=== PATIENT | male | born 1970 | race Caucasian/White ===

== ENCOUNTER → 2019-09-26 10:16 | Outpatient (CLI) | payer BC, SELFPAY ==
[2019-09-27 16:03] LABS: Covid-19 Nasal PCR Sendout Lex Not Detected
--- NOTE | 2019-09-28 18:45 | PC.NURSE ---
ATTEMPTED TO CALL WITH NEGATIVE RESULTS OF COVID 19 TEST. NO VOICEMAIL, MESSAGES STATES THE NUMBER DIALED IS NOT ACCEPTING CALLS AT THIS TIME
== END ==
PROVIDERS: PCP Family Medicine; Visit Provider Family Medicine
DX: Z03.818 Encounter for observation for suspected exposure to other biological agents ruled out (principal)
CPT/HCPCS: U0004

== ENCOUNTER 2020-09-21 18:27 | Emergency (ER) | payer BC, SELFPAY ==
[2020-09-21 18:40] VITALS: BP 146/98; PULSE 115; RESP 18; TEMP 36.7; O2SAT 98; BMI 26.6
--- NOTE | 2020-09-21 18:45 | XR_ITS ---
PROCEDURE INFORMATION: Exam: XR Facial Bones, Minimum of 3 Views, Complete Exam date and time: 09/21/2020 6:45 PM Age: 49 years old Clinical indication: Nose pain; Patient HX: Fall TECHNIQUE: Imaging protocol: XR of the facial bones, minimum of 3 views. Complete exam. COMPARISON: No relevant prior studies available. FINDINGS: Sinuses: Well aerated. No opacification. Nasal cavity/Septum: Radiopaque densities noted within the nasal cavity and overlying the lower lip. Bones/joints: Postoperative changes of the mandible present with plate and screws in place. No evidence of acute fracture as imaged. Soft tissues: Unremarkable. IMPRESSION: 1. No evidence of acute fracture as imaged. Recommend CT scan of the facial bones if symptoms persist. 2. Radiopaque densities noted within the nasal cavity and overlying the lower lip.
--- NOTE | 2020-09-21 18:45 | XR_ITS ---
PROCEDURE INFORMATION: Exam: XR Right Elbow Exam date and time: 09/21/2020 6:45 PM Age: 49 years old Clinical indication: Pain; Elbow; Right; Patient HX: Fall; Additional info: Fall--. Patient unable to straighten arm completely due to pain TECHNIQUE: Imaging protocol: XR Right elbow. Views: 3 or more views. COMPARISON: No relevant prior studies available. FINDINGS: Bones/joints: There is no evidence of acute fracture. There is no evidence of joint malalignment or dislocation. Degenerative changes of the elbow joint. Soft tissues: There are no soft tissue masses or fluid collections. Soft tissue swelling is present. IMPRESSION: 1. No evidence of acute fracture. 2. No evidence of acute dislocation. 3. Degenerative changes of the elbow joint. 4. Soft tissue swelling is present.
--- NOTE | 2020-09-21 19:37 | HMH.EDUTC ---
[facility] [place] Clinical Impression: Right elbow pain Fall Qualifiers: Encounter type: initial encounter Qualified Code(s): W19.XXXA - Unspecified fall, initial encounter Nasal trauma Qualifiers: Encounter type: initial encounter Qualified Code(s): S09.92XA - Unspecified injury of nose, initial encounter Disposition: Home, Self-Care Condition on Discharge: Good Instructions: DI for Elbow Pain Additional Instructions: Rest the extremity, apply ice for 15 minutes as tolerated three or four times per day, Wear the dani wrap for compression, Elevate the extremity as tolerated while you are resting. Take ibuprofen for pain. I sent in a prescription to your pharmacy. Follow up with Dr. Tellez (orthopedics). Sometimes there can be fractures that don't show up well on the first set of x-rays. So, you should follow up if you continue to have symptoms. I put in a referral but you need to call his office and schedule an appointment. Follow up with your regular doctor. GO TO THE ER FOR ANY WORSENING SYMPTOMS Prescriptions: Ibuprofen [Ibuprofen 800mg Tablet] 800 mg PO Q8HP PRN #30 tab PRN Reason: Moderate Pain Transmission Status: Received by [facility] #[id number] Referrals: Keo Palma MD [Primary Care Provider] - Dilcia Tellez MD [Physician] - Time of Disposition: 19:50 Medical Decision Making - Medical Records Medical records reviewed: No: I reviewed the patient's medical records. - Omar Inquiry Pt receiving controlled substance: No Vital Signs: 09/21/20 18:40 09/21/20 19:47 Temperature 98.1 F 98 F Temperature Source Oral Pulse Rate 107 H Pulse Rate [Right] 115 H Respiratory Rate 18 16 Blood Pressure 139/92 H Blood Pressure [Right Arm] 146/98 H Blood Pressure Mean [Right Arm] 114 Blood Pressure Source [Right Arm] Automatic Cuff Blood Pressure Position [Right Arm] Sitting 02 Sat by Pulse Oximetry 98 Oxygen Delivery Method Room Air - Radiology Data #1 Image(s): Elbow Image Reviewed: Yes I reviewed the patient's radiology image, Yes I have reviewed radiologist's interpretation Preliminary Findings: Abnormal, No Fracture Seen PROCEDURE INFORMATION: Exam: XR Right Elbow Exam date and time: 09/21/2020 6:45 PM Age: 49 years old Clinical indication: Pain; Elbow; Right; Patient HX: Fall; Additional info: Fall--. Patient unable to straighten arm completely due to pain TECHNIQUE: Imaging protocol: XR Right elbow. Views: 3 or more views. COMPARISON: No relevant prior studies available. FINDINGS: Bones/joints: There is no evidence of acute fracture. There is no evidence of joint malalignment or dislocation. Degenerative changes of the elbow joint. Soft tissues: There are no soft tissue masses or fluid collections. Soft tissue swelling is present. IMPRESSION: 1. No evidence of acute fracture. 2. No evidence of acute dislocation. 3. Degenerative changes of the elbow joint. 4. Soft tissue swelling is present. #2 Image(s): Other (facial bones) Image Reviewed: Yes I reviewed the patient's radiology image, Yes I have reviewed radiologist's interpretation Preliminary Findings: Normal/NAD, No Fracture Seen PROCEDURE INFORMATION: Exam: XR Facial Bones, Minimum of 3 Views, Complete Exam date and time: 09/21/2020 6:45 PM Age: 49 years old Clinical indication: Nose pain; Patient HX: Fall TECHNIQUE: Imaging protocol: XR of the facial bones, minimum of 3 views. Complete exam. COMPARISON: No relevant prior studies available. FINDINGS: Sinuses: Well aerated. No opacification. Nasal cavity/Septum: Radiopaque densities noted within the nasal cavity and overlying the lower lip. Bones/joints: Postoperative changes of the mandible present with plate and screws in place. No evidence of acute fracture as imaged. Soft tissues: Unremarkable. RANJIT
[2020-09-21 19:47] VITALS: BP 139/92; PULSE 107; RESP 16; TEMP 36.6
== END 2020-09-21 19:51 | disposition home or self-care (01) ==
PROVIDERS: Emergency Provider Nurse Practitioner Family; PCP Family Medicine
DX: S09.92XA Unspecified injury of nose, initial encounter (principal); W01.0XXA Fall on same level from slipping, tripping and stumbling without subsequent striking against object, initial encounter; Y92.009 Unspecified place in unspecified non-institutional (private) residence as the place of occurrence of the external cause; F17.210 Nicotine dependence, cigarettes, uncomplicated
CPT/HCPCS: 70150; 73080; 99202; G0463

== ENCOUNTER → 2020-09-30 13:09 | Outpatient (CLI) | payer BC, SELFPAY ==
--- NOTE | 2020-09-30 13:14 | XR_ITS ---
PROCEDURE: XR LUMBAR SPINE MIN 4V CLINICAL INDICATION: LT LEG PAIN,DDD COMPARISON: No exams were available for comparison FINDINGS: There is normal alignment. No fracture or dislocation. There is degenerative disc disease at L5-S1 with anterior bridging osteophyte. Anterior bridging osteophyte also noted at L2-L3. Small posterior osteophytes also noted at L5-S1. There is mild facet sclerotic change at L5-S1. Other findings:None. IMPRESSION: Degenerative disc disease at L5-S1 with endplate osteophytes and mild facet arthritic changes also at that level. Dictated by: Benson Gerber MD 09/30/2020 13:43 Benson Gerber MD in [place] 09/30/2020 13:43
== END ==
PROVIDERS: PCP Family Medicine; Visit Provider Family Medicine
DX: M51.36 Other intervertebral disc degeneration, lumbar region (principal); M79.605 Pain in left leg
CPT/HCPCS: 72110

== ENCOUNTER → 2020-10-13 14:12 | Outpatient (CLI) | payer BC, SELFPAY ==
--- NOTE | 2020-10-13 14:15 | XR_ITS ---
PROCEDURE: XR ELBOW RT MIN 3V CLINICAL INDICATION: right elbow pain COMPARISON: CR XR ELBOW RT MIN 3V from 09/21/2020 FINDINGS: Osteoarthritic changes are present involving the elbow joint. Distal humerus anteriorly and laterally and along the radial head anteriorly. No acute fracture or dislocation. No lytic or blastic change. Bony spurring is present at the medial aspect of the elbow. The calcification along the radial head may actually be due to hypertrophic change of the coracoid process. IMPRESSION: Overall no significant change in the osteoarthritic changes of the elbow compared to 09/22/2019 Dictated by: Benson Gerber MD 10/13/2020 14:36 Benson Gerber MD in [place] 10/13/2020 14:36
== END ==
PROVIDERS: PCP Family Medicine; Visit Provider Orthopaedic Surgery
DX: M25.521 Pain in right elbow (principal)
CPT/HCPCS: 73080

== ENCOUNTER 2020-12-26 10:49 | Emergency (ER) | payer BC, SELFPAY ==
[2020-12-26 11:00] VITALS: BP 146/96; PULSE 109; RESP 19; O2SAT 98; BMI 26.8
--- NOTE | 2020-12-26 11:27 | HMH.EDUTC ---
[facility] [place] Clinical Impression: COVID-19 virus test result unknown Nausea & vomiting Qualifiers: Vomiting type: unspecified Vomiting Intractability: non-intractable Qualified Code(s): R11.2 - Nausea with vomiting, unspecified Disposition: Home, Self-Care Condition on Discharge: Good Instructions: DI for COVID-19 (Suspected or Confirmed ), COVID-19: Protecting Yourself When You're at High Risk, Preventing the Spread of Coronavirus Discharge Instructions, DI for Nausea -- Adult, Nausea and Vomiting-Adult Additional Instructions: Monitor temperature. Seek treatment if fever develops. Follow-up immediately if new or worse symptoms worsen or no noticeable improvement over 48 hours. Increase fluids such as water, Gatorade, Powerade, juice or Pedialyte with limited formula/dietary in children No food is okay as long as you are drinking. Once ready to eat start bland such as bananas, rice, applesauce, toast. Contagious until no diarrhea, vomiting, fever times 48 hours without medication Avoid antidiarrheals unless told otherwise. Best to let the virus run its course. Follow-up immediately for new or worsening symptoms or no noticeable improvement over the next 48 hours. Prescriptions: ondansetron HCL [Zofran 4mg Tab*] 4 mg PO TIDP PRN 5 Days #12 tab PRN Reason: Nausea Transmission Status: Pending to [facility] #[id number] Referrals: Keo Palma MD [Primary Care Provider] - Time of Disposition: 11:31 Medical Decision Making - Omar Inquiry Pt receiving controlled substance: No Orders (Tests/Meds): ORDERS Category Date Time Status Covid-19 Nasal PCR ([facility]) Routine Lab 12/26/20 11:08 Received [facility] [place] HPI - General Chief complaint: Urgent [facility] Stated complaint: vomiting, fever Time Seen by Provider: 12/26/20 11:27 Mode of Arrival: Ambulatory Source of Information: Patient Limitations: No Limitations - History of Present Illness Provider Complaint: 50 yr old male presents for nausea and vomiting that started this am. pt states his work states he has to get a covid swab before returning to work - Related Data Home Medications Medication Instructions Recorded Confirmed lisinopril 10 1 tab PO DAILY 10/13/20 10/13/20 mg-hydrochlorothiazide 12.5 mg tablet Previous Rx's Medication Instructions Recorded Ibuprofen [Ibuprofen 800mg 800 mg PO Q8HP PRN #30 tab 09/21/20 Tablet] ondansetron HCL [Zofran 4mg Tab*] 4 mg PO TIDP PRN 5 Days #12 tab 12/26/20 Allergies Allergy/AdvReac Type Severity Reaction Status Date / Time acetaminophen [From PERCOCET] Allergy Unknown Rash Verified 10/13/20 13:40 oxycodone [From PERCOCET] Allergy Unknown Verified 10/13/20 13:40 [facility] History - Hepatitis A Screen Attestation statement:: This patient has been screened for Hepatitis A risk factors. I have reviewed the patient's past medical history: Yes Medical History: Reports:: Hypertension - Social History Smoking Status: Current every day smoker # Packs/Day (cigarettes): 1 Alcohol Intake: current Alcohol Intake Frequency:: a few times a month Occupational Status: employed Family Hx:: No significant family history ROS Obtained: Yes Systems reviewed as appropriate & no additional complaints - Constitutional Constitutional: Reports system reviewed and no additional complaints, except as docu, Denies fatigue, Denies fever(s) - Eyes Eyes: Reports system reviewed and no additional complaints, except as docu, Denies loss of vision - ENT Ears, Nose, Mouth, and Throat: Reports system reviewed and no additional complaints, except as docu, Denies sore throat - Cardiovascular Cardiovascular: Reports system reviewed and no additional complaints, except as docu, Denies chest pain - Respiratory Respiratory: Reports system reviewed and no additional complaints, except as docu, Denies change in phlegm color - Gastrointestinal Gastrointestingal: Reports: system reviewed and no a
[2020-12-26 11:30] VITALS: BP 146/96; PULSE 109; RESP 19; TEMP 36.8; O2SAT 98
== END 2020-12-26 11:36 | disposition home or self-care (01) ==
PROVIDERS: Emergency Provider Nurse Practitioner Family; PCP Family Medicine
DX: R11.2 Nausea with vomiting, unspecified (principal); Z20.822 Contact with and (suspected) exposure to COVID-19
CPT/HCPCS: 99202; G0463; U0003

== ENCOUNTER → 2021-01-19 17:23 | Outpatient (CLI) | payer BC, SELFPAY | PROVIDERS: PCP Family Medicine; Visit Provider Nurse Practitioner | DX: Z20.822 Contact with and (suspected) exposure to COVID-19 (principal) | CPT/HCPCS: C9803; U0003; U0005 ==

== ENCOUNTER → 2021-01-21 13:23 | Outpatient (CLI) | payer BC, SELFPAY | PROVIDERS: PCP Family Medicine; Visit Provider Nurse Practitioner | DX: Z20.822 Contact with and (suspected) exposure to COVID-19 (principal) | CPT/HCPCS: C9803; U0003; U0005 ==

== ENCOUNTER → 2021-02-08 09:42 | Outpatient (CLI) | payer BC, SELFPAY | PROVIDERS: PCP Family Medicine; Visit Provider Nurse Practitioner | DX: Z20.822 Contact with and (suspected) exposure to COVID-19 (principal) | CPT/HCPCS: C9803; U0003; U0005 ==

== ENCOUNTER → 2021-03-15 10:15 | Outpatient (CLI) | payer BC, SELFPAY ==
[2021-03-15 10:48] LABS: Basophils # 0.2 K/mm3 (0-0.2); Basophils % 1.7 % (0.1-2.0); Eosinophils # 0.5 K/mm3 (0.0-0.4); Eosinophils % 4.7 % (0.1-12.0); Hematocrit 43.9 % (42.0-52.0); Hemoglobin 14.1 g/dL (14.1-18.0); Lymphocytes % 27.3 % (10-50); Mean Corpuscular HGB Conc 32.2 g/dL (31.8-35.4); Mean Corpuscular Volume 108.7 fl (80-94); Mean Platelet Volume 8.6 fl (7.4-10.4); Monocytes # 0.6 K/mm3 (0.1-1.0); Monocytes % 5.6 % (1.7-9.3); Neutrophils # 6.7 K/mm3 (1.8-7.8); Neutrophils % 60.7 % (37.0-80.0); Platelet Count 664 K/mm3 (142-424); Red Blood Count 4.04 M/mm3 (4.60-6.20)
[2021-03-15 11:15] LABS: Microalbumin < 6.000 mg/L (0-16.7)
[2021-03-15 11:34] LABS: Alanine Aminotransferase 30 U/L (12-78); Albumin Level 4.2 g/dl (3.5-5.0); Albumin/Globulin Ratio 1.8 (1.1-1.8); Alkaline Phosphatase 70 U/L (38-126); Anion Gap 11.5 mEq/L (5-15); Aspartate Amino Transferase 27 U/L (17-59); Bilirubin,Total 0.2 mg/dl (0.2-1.3); Blood Urea Nitrogen 12 mg/dl (9-20); Calcium 9.3 mg/dl (8.4-10.2); Carbon Dioxide 29 mmol/L (22.0-30.0); Chloride 104 mmol/L (98-107); Chol/HDL Ratio 4.4 (1-3.5); Cholesterol 174 mg/dl (140-200); Estimated Glomerular Filt Rate 90 ml/min (>60); GFR (African American) 109 ML/MIN (>60); Globulin 2.4 g/dL (1.3-3.2); Glucose 92 mg/dl (74-100); HDL Cholesterol 40 mg/dl (40-60); Potassium 4.5 mmoL/L (3.5-5.1); Sodium 140 mmol/L (136-145); Total Protein,Serum 6.6 g/dl (6.3-8.2); Triglycerides 204 mg/dl (30-150); Uric Acid 5.9 mg/dl (3.5-8.5); VLDL Cholesterol 41 mg/dL (0-40)
[2021-03-15 11:45] LABS: Direct LDL Cholesterol 92.77 mg/dL (100-129)
[2021-03-15 12:05] LABS: Thyroid Stimulating Hormone 0.78 uIU/mL (0.465-4.68)
== END ==
PROVIDERS: Family Medicine; Visit Provider Internal Medicine Adolescent Medicine
DX: I10 Essential (primary) hypertension (principal); E78.2 Mixed hyperlipidemia
CPT/HCPCS: 36415; 80053; 80061; 82043; 84443; 84550; 85025

== ENCOUNTER 2025-04-21 06:50 | Outpatient (CLI) | payer BC, SELFPAY ==
--- OUTSIDE RECORDS SUMMARY | 2024-07-01 04:45 | XMS_ITS ---
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 Role Phone Keo Palma Primary Care Provider Allergies Allergen (clinical drug ingredient) Drug/Non Drug Allergy documented on EMR Reaction Allergy Type Onset Date Status acetaminophen / oxycodone Percocet Unknown Drug Allergy Active Results Component Value Reference Range Notes CBC Venipuncture (in house) Reviewed date:07/02/2024 03:01:47 PM Interpretation: Normal Performing Lab: Notes/Report: Normal wbc 6.5 3.5 - 10 lymph 31.8% 15 - 50 mid 8.3% 2 - 15 gran 59.9% 35 - 80 rbc 4.48 3.5 - 5.5 hgb 16.0 11.5 - 16.5 hct 45.9 35 - 55 mcv 102.4 75 - 100 mch 35.6 25 - 35 mchc 34.8 31 - 38 platlet 357 100 - 400 P-Vitamin B12 Reviewed date:07/02/2024 03:01:46 PM Interpretation: Normal Performing Lab: Notes/Report: Test performed by [facility] , [address], [place] [address] Dinesh Sequeira MD, Motor Vehicle Field Representative CLIA: [id number] Vitamin B12 [phone] pg/mL P-Comprehensive Metabolic Pa erin (CMP) Reviewed date:07/02/2024 03:01:46 PM Interpretation:gluc 101, alt 76, ast 77 Performing Lab: Notes/Report: Test performed by [facility] [address] [place] [address] , [address], [place] [address] Dinesh Sequeira MD, Motor Vehicle Field Representative CLIA: [id number] Sodium 139 135-145 mmol/L Potassium 4.4 3.5-5.3 mmol/L Chloride 97 97-108 mmol/L CO2 28 22-32 mmol/L Glucose 101 65-99 mg/dL BUN 9 6-20 mg/dL Creatinine 0.98 0.70-1.30 mg/dL Calcium 9.7 8.6-10.4 mg/dL eGFR by Creatinine 93 >59 mL/min/1.73m2 Protein 7.5 6.0-8.3 g/dL Albumin 4.6 3.5-5.3 g/dL Alkaline Phosphatase 110 40-129 IU/L ALT (SGPT) 76 <5-55 IU/L AST (SGOT) 77 <5-46 IU/L Bilirubin, Total 0.4 <0.2-1.2 mg/dL A/G Ratio 1.6 1.1-2.5 P-Lipid Panel Reviewed date:07/02/2024 03:01:47 PM Interpretation:chol 260, trigs 169, non-hdl 199, ldl 165 Performing Lab: Notes/Report: Test performed by [facility] [address] [place] [address] , [address], [place] [address] Dinesh Sequeira MD, Motor Vehicle Field Representative CLIA: [id number] Cholesterol 260 <200 mg/dL Triglycerides 169 <150 mg/dL HDL Cholesterol 61 >39 mg/dL Cholesterol / HDL Ratio 4.26 0.00-4.99 Ratio Non-HDL Cholesterol 199 <130 mg/dL LDL Cholesterol (Calculation) 165 <130 mg/dL LDL Cholesterol Levels* Less than 100 mg/dL Optimal 100 to 129 mg/dL Near Optimal/ Above Optimal 130 to 159 mg/dL Borderline High 160 to 189 mg/dL High 190 mg/dL and above Very High * Categories as recommended by the 2004 ATPIII guidelines LDL/HDL Ratio 2.7 <3.3 Ratio LDL Cholesterol Patient History Test Date: 07/01/2024 LDL Results: 165 Units: mg/dL % Change: - P-TSH reflex to FT4 Reviewed date:07/02/2024 03:01:47 PM Interpretation: Normal Performing Lab: Notes/Report: Test performed by [facility] [address] [place] [address] , [place] [address] Dinesh Sequeira MD, Motor Vehicle Field Representative CLIA: [id number] TSH reflex to FT4 0.61 0.43-5.25 mU/L P-Microalbumin/Creatinine, R andom Urine Sample Reviewed date:07/02/2024 03:01:47 PM Interpretation:a/c 43 Performing Lab: Notes/Report: Test performed by [facility] [address] [place] [address] , [place] [address] Dinesh Sequeira MD, Motor Vehicle Field Representative CLIA: [id number] Albumin/Creatinine Ratio, Urine 43 0-30 ug/m g Microalbumin, Urine, Random 9.3 Creatinine, Urine 216.7 REASON FOR VISIT ckup,refills Medications Medication SIG (Take, Route, Frequency, Duration) Notes Start Date End Date Status Atorvastatin Calcium 10 MG 1 tab(s) oral ly once a day; Duration: 90 days Active QUEtiapine Fumarate 50 MG 1 tab(s) orall y once a day (in the evening); Duration: 90 days Active Lisinopril-hydroCHLOROthiazi de 20-12.5 MG 1 tab(s) orally once a day; Duration: 90 days Active Triamcinolone Acetonide 0.1 % 1 phil applied topically 3 times a day 02/28/2022 Active Omeprazole 20 MG 1 cap(s) orally once a day; Duration: 90 days Active Vital Signs Weight 192.2 lbs 07/01/2024 Blood pressure systolic 150 mm Hg 07/01/19 Blood pressure diastolic 94 mm Hg 025 Heart Rate 113 /min 07/01/2024 Height 71 in 07/01/2024 BMI 26.80 kg/m2 07/01/2024 Encounters Encounter Location Date Provider Diagnosis [facility] [address] [place] [id number] 07/01/2024 Keo Palma Essential hypertensi on I10 ; Mixed hyperlipidemia E78.2 ; Gastroesophageal reflux disease, unspecified whether esophagitis present K21.9 ; Numbness in both legs R20.0 and Primary insomnia F51.01 Assessments Encounter Date Diagnosis (ICD Code) Assessment Notes Treatment Notes Treatment Clinical Notes Section Notes 07/01/2024 Essential hypertension (ICD-10 - I10) 07/01/2024 Mixed hyperlipidemia (ICD-10 - E78.2) 07/01/2024 Gastroesophageal reflux disease, unspecified whether esophagitis present (ICD-10 - K21.9) 07/01/2024 Numbness in both legs (ICD-10 - R20.0) 07/01/2024 Primary insomnia (ICD-10 - F51.01) Plan Of Treatment Medication Medication Name Sig Start Date Stop Date Notes Atorvastatin Calcium 10 MG 1 tab(s) oral ly once a day; Duration: 90 days QUEtiapine Fumarate 50 MG 1 tab(s) orall y once a day (in the evening); Duration: 90 days Lisinopril-hydroCHLOROthiazi de 20-12.5 MG 1 tab(s) orally once a day; Duration: 90 days Omeprazole 20 MG 1 cap(s) orally once a day; Duration: 90 days Next Appt Details Follow Up: 4 Weeks, Reason: Provider Name:Keo poon, 07/15/2025 09:30:00 AM, [address], [address], [place], [phone], Progress Notes * Mt NESBITT:09/22 (54 yo M)Acc No.[id number]:07/01/2024 Progress Notes Patient: Arvin COOPER Provider: Salma Palma M.D. :1970 A ge:53 Y S ex:Male Date:07/01/2024 Address:[address] [place] [address] [address], [place], [phone] Subjective: * Chief Complaints: * 1 . Ckup,refills. * HPI: C ardiology: 53 year old male presents with c/o Blood Pressure Elevated P t here for 6 mo f/u on hypertension, states he is doing well and does not have any concerns. c/o Hyperlipidemia P t is fasting today. * ROS: D ERMATOLOGY: no R casper. n o H roland. G ASTROENTEROLOGY: no N ausea. n o V omiting. U ROLOGY: no D ifficulty urinating. n o B lood in urine. * Medical History: A llergic Rhinitis, Hypertension, Hyperlipidemia, Transaminasemia, Cervical Disc Disease, with C5/6 Spinal Stenosis, Alcoholism, Rehab 05/2013. * Surgical History: T ooth Extractions 1997, LT 5th Digit Tendon Decompression 2010, Cardiac Stress Test - Negative - [facility] 03/12/2020. * Hospitalization/Major Diagno stic Procedure: N ausea and Hypotension- [facility] 10/31/2009, Vomiting & Diarrhea- [facility] 06/15-03/2013, Siezure- [facility] 06/22-, Chest and Neck Pain- [facility] 03/10/2020, [place] [facility] [place] * Family History: F ather: alive. M other: alive, cervical cancer. 2 son(s) - healthy. . * Social History: C URRENT TOBACCO USE S moking Status: Patient does smoke, packs per day: 1. C affeine: yes, frequency:daily. Exercise: no. Marital Status: Single. Occupation: [employer]. Past smoking status: yes, PPD: 1 and 1/2 , years: 20+. Recreational drug use: no. Alcohol: Yes, Type: vodka and beer, Frequency: daily, heavy use. Sexually active: yes. * Medications: T aking Triamcinolone Acetonide 0.1 % Cream 1 phil applied topically 3 times a day , Taking Omeprazole 20 MG Capsule Delayed Release 1 cap(s) orally once a day , Taking QUEtiapine Fumarate 50 MG Tablet 1 tab(s) orally once a day (in the evening) , Taking Atorvastatin Calcium 10 MG Tablet 1 tab(s) orally once a day , Taking Lisinopril-hydroCHLOROthiazide 20-12.5 MG Tablet 1 tab(s) orally once a day , Medication List reviewed and reconciled with the patient * Allergies: P ercocet. Objective: * Vitals: W t:192.2, Temp:97.8, BP:150/94, HR:113, Nurse:erika, Ht: 71, BMI:26.80. * Examination: C ardiology: General Appearance: p leasant, NAD. H eart sounds: R RR, normal S1, S2. L ungs: c lear, no rales or wheezes. E xtremities: n o leg edema. Assessment: * Assessment: 1. E ssential hypertension - I10 (Primary) 2 . M ixed hyperlipidemia - E78.2 3 . G astroesophageal reflux disease, unspecified whether esophagitis present - K21.9 4 . N umbness in both legs - R20.0 5 . P rimary insomnia - F51.01 Plan: * Treatment: Value Reference Range A /G Ratio 1.6 1.1-2.5 - * A lbumin 4.6 3.5-5.3 - g/dL * A lkaline Phosphatase 110 40-129 - IU/L * A LT (SGPT) 76 H <5-55 - IU/L * A ST (SGOT) 77 H <5-46 - IU/L * B ilirubin, Total 0.4 <0.2-1.2 - mg/dL * B UN 9 6-20 - mg/dL * C alcium 9.7 8.6-10.4 - mg/dL * C hloride 97 97-108 - mmol/L * C O2 28 22-32 - mmol/L * C reatinine 0.98 0.70-1.30 - mg/dL * G lucose 101 H 65-99 - mg/dL * P otassium 4.4 3.5-5.3 - mmol/L * S odium 139 135-145 - mmol/L * P rotein 7.5 6.0-8.3 - g/dL * e GFR by Creatinine 93 >59 - mL/min/1.73m2 * Perri Zamudio 07/02/2024 3:01: 36 PM >See phone encounter ?LAB: P-Microalbumin/Creatinine, Random Urine Sample (Collection Date & Time - 07/01/2024 09:54 AM)?a/c 43* Value Reference Range A lbumin/Creatinine Ratio, Urine 43 H 0-30 - ug /mg * C reatinine, Urine 216.7 - mg/dL * M icroalbumin, Urine, Random 9.3 - mg/dL * LizzPerri 07/02/2024 3:01: 36 PM >See phone encounter 2.?Mixed hyperlipidemia? Refill Atorvastatin Calcium Tablet, 10 MG, 1 tab(s), orally, once a day, 90 days, 90, Refills 1. ?LAB: P-Comprehensive Metabolic Panel (CMP) (Collection Date & Time - 07/01/2024 09:54 AM)?gluc 101, alt 76, ast 77* Value Reference Range A /G Ratio 1.6 1.1-2.5 - * A lbumin 4.6 3.5-5.3 - g/dL * A lkaline Phosphatase 110 40-129 - IU/L * A LT (SGPT) 76 H <5-55 - IU/L * A ST (SGOT) 77 H <5-46 - IU/L * B ilirubin, Total 0.4 <0.2-1.2 - mg/dL * B UN 9 6-20 - mg/dL * C alcium 9.7 8.6-10.4 - mg/dL * C hloride 97 97-108 - mmol/L * C O2 28 22-32 - mmol/L * C reatinine 0.98 0.70-1.30 - mg/dL * G lucose 101 H 65-99 - mg/dL * P otassium 4.4 3.5-5.3 - mmol/L * S odium 139 135-145 - mmol/L * P rotein 7.5 6.0-8.3 - g/dL * e GFR by Creatinine 93 >59 - mL/min/1.73m2 * Perri Zamudio 07/02/2024 3:01: 36 PM >See phone encounter ?LAB: P-Lipid Panel (Collection Date & Time - 07/01/2024 09:54 AM)?chol 260, trigs 169, non-hdl 199, ldl 165* Value Reference Range C holesterol / HDL Ratio 4.26 0.00-4.99 - Ratio * C holesterol 260 H <200 - mg/dL * H DL Cholesterol 61 >39 - mg/dL * L DL Cholesterol (Calculation) 165 H <130 - mg/d L * L DL/HDL Ratio 2.7 <3.3 - Ratio * N on-HDL Cholesterol 199 H <130 - mg/dL * T riglycerides 169 H <150 - mg/dL * Perri Zamudio 07/02/2024 3:01: 36 PM >See phone encounter ?LAB: P-TSH reflex to FT4 (Collection Date & Time - 07/01/2024 09:54 AM)? Normal* Value Reference Range T SH reflex to FT4 0.61 0.43-5.25 - mU/L * LizzPerri 07/02/2024 3:01: 36 PM >See phone encounter 3.?Gastroesophageal reflux disease, unspecified whether esophagitis present? Refill Omeprazole Capsule Delayed Release, 20 MG, 1 cap(s), orally, once a day, 90 days, 90, Refills 1.??4.?Numbness in both legs?LAB: P-Vitamin B12 (Collection Date & Time - 07/01/2024 09:54 AM)?Normal* Value Reference Range V itamin B12 [phone] - pg/mL * LizzPerri langley 07/02/2024 3:01: 36 PM >See phone encounter ?LAB: CBC Venipuncture (in house) (Collection Date & Time - 07/01/2024)? Normal* Value Reference Range w bc 6.5 3.5 - 10 * l ymph 31.8% 15 - 50 * m id 8.3% 2 - 15 * g ran 59.9% 35 - 80 * r bc 4.48 3.5 - 5.5 * h gb 16.0 11.5 - 16.5 * h ct 45.9 35 - 55 * m cv 102.4 75 - 100 * m ch 35.6 25 - 35 * m chc 34.8 31 - 38 * p latlet 357 100 - 400 * Mariza Allison 07/01/2024 11:29:0 6 AM > Perri Zamudio 07/02/2024 3:01:36 PM >See phone encounter 5.?Primary insomnia? Refill QUEtiapine Fumarate Tablet, 50 MG, 1 tab(s), orally, once a day (in the evening), 90 days, 90, Refills 1.?? * Procedure Codes: 8 5025 CBC WITH AUTO DIFF, 3077F SYST BP = 140 MM HG6 IT, 3080F DIAST BP = 90 MM HG * Follow Up: 4 Weeks * Images: Billing Information: * Visit Code: 21690 Office Visit, Est Pt., Level 4. * Procedure Codes: 43595 CBC WITH AUTO DIFF. 3077F SYST BP = 140 MM HG6 IT. 3080F DIAST BP = 90 MM HG. * Electronic signature of Sarah Palma MD on 04/21/2025 at 06:53 AM EST Sign off status: Pending * Provider: Salma Palma M.D. Date: 0 07/01/2024 Generated for Andreina sofia/Syeda/eTransmitting on: 06/22/2024 06:53 AM EST History and Physical Notes * HPI (History of Present Illness) Category Sub-Category Detail Notes Category Not es Cardiology Blood Pressure Elevated Pt here for 6 mo f/u on hypertension, states he is doing well and does not have any concerns Hyperlipidemia Pt is fasting today Examination Category Sub-Category Detail Notes Category Not es Cardiology Lungs: clear, no rales or wheezes Heart sounds: RRR, normal S1, S2 Extremities: no leg edema General Appearance: pleasant, NAD
--- OUTSIDE RECORDS SUMMARY | 2024-08-05 05:15 | XMS_ITS ---
Author Organization [facility] Address [address] [place] [id number] Care Team Providers Care Astro Technician Name Role Phone Keo Palma Primary Care Provider Allergies Allergen (clinical drug ingredient) Drug/Non Drug Allergy documented on EMR Reaction Allergy Type Onset Date Status acetaminophen / oxycodone Percocet Unknown Drug Allergy Active REASON FOR VISIT 4 week checkup Encounters Encounter Location Date Provider Diagnosis [facility] [address] [place] [phone] 08/05/2024 Keo Palma Plan Of Treatment Next Appt Details Provider Name:Keo Glover ry, 07/15/2025 09:30:00 AM, [address], [address], [place], [phone], Progress Notes * Arvin NESBITTDOB:[birth year] (54 yo M)Acc No.[id number]:08/05/2024 Progress Notes Patient: Cata Arvin NUÑEZ Provider: Salma Palma M.D. :1970 A ge:53 Y S ex:Male Date:08/05/2024 Address:[address], [id number] Subjective: * Chief Complaints: * 1 . 4 week checkup. * ROS: D ERMATOLOGY: no R casper. [...] 2010, Cardiac Stress Test - Negative - [facility] 03/12/2020. * Hospitalization/Major Diagno stic Procedure: N ausea and Hypotension- [facility] ER 10/31/2009, Vomiting & Diarrhea- [facility] 06/15-03/2013, Siezure- [facility] 06/22-, Chest and Neck Pain- [facility] 03/10/2020, Elbow- [facility] 09/2020. * Family History: F ather: alive. M other: alive, cervical cancer. 2 son(s) - healthy. . * Social History: C URRENT TOBACCO USE S moking Status: Patient does smoke, packs per day: 1. C affeine: yes, frequency:daily. Exercise: no. Marital Status: Single. Occupation: [employer]. Past smoking status: yes, PPD: 1 and 1/2 , years: 20+. Recreational drug use: no. Alcohol: Yes, Type: vodka and beer, Frequency: daily, heavy use. Sexually active: yes. * Allergies: P ercocet. Objective: * Vitals: Assessment: Plan: * Treatment: * Images: Billing Information: * Visit Code: * Procedure Codes: * Electronic signature of Sarah Palma MD on 04/21/2025 at 06:53 AM EST Sign off status: Pending * Provider: Salma Palma M.D. Date: 0 08/05/2024 Generated for Andreina sofia/Syeda/Bradford on: 06/22/2024 06:53 AM EST
--- OUTSIDE RECORDS SUMMARY | 2025-04-13 06:15 | XMS_ITS ---
Author Organization [facility] Address [address] [facility] [address] [place] [id number] Care Team Providers Care Harnessmaker Name Role Phone Keo Palma Primary Care Provider Allergies Allergen (clinical drug ingredient) Drug/Non Drug Allergy documented on EMR Reaction Allergy Type Onset Date Status acetaminophen / oxycodone Percocet Unknown Drug Allergy Active REASON FOR VISIT refills Medications Medication SIG (Take, Route, Frequency, Duration) Notes Start Date End Date Status Triamcinolone Acetonide 0.1 % 1 phil applied topically 3 times a day 02/28/2022 Active Omeprazole 20 MG 1 cap(s) orally once a day; Duration: 90 days Active QUEtiapine Fumarate 50 MG 1 tab(s) orall y once a day (in the evening); Duration: 90 days Active Atorvastatin Calcium 10 MG 1 tab(s) oral ly once a day; Duration: 90 days Active Lisinopril-hydroCHLOROthiazi de 20-12.5 MG 1 tab(s) orally once a day; Duration: 90 days Active Immunizations Vaccine Route Administration Date Status Comme nts Fluzone Quad (6months&older) IM Intramuscular 04/13/2025 Administered Vital Signs Weight 218.6 lbs 04/13/2025 Blood pressure systolic 156 mm Hg 04/13/20 25 Blood pressure diastolic 92 mm Hg 025 Heart Rate 104 /min 04/13/2025 Height 71 in 04/13/2025 BMI 30.49 kg/m2 04/13/2025 Encounters Encounter Location Date Provider Diagnosis [facility] [address] [place] [phone] 04/13/2025 Keo Palma Essential hypertensi on I10 ; Mixed hyperlipidemia E78.2 ; Gastroesophageal reflux disease, unspecified whether esophagitis present K21.9 ; Primary insomnia F51.01 ; Personal history of nicotine dependence Z87.891 ; Screening for lung cancer Z12.2 ; Colon cancer screening Z12.11 and Encounter for immunization Z23 Assessments Encounter Date Diagnosis (ICD Code) Assessment Notes Treatment Notes Treatment Clinical Notes Section Notes 04/13/2025 Essential hypertension (ICD-10 - I10) 04/13/2025 Mixed hyperlipidemia (ICD-10 - E78.2) 04/13/2025 Gastroesophageal reflux disease, unspecified whether esophagitis present (ICD-10 - K21.9) 04/13/2025 Primary insomnia (ICD-10 - F51.01) 04/13/2025 Personal history of nicotine dependence (ICD-10 - Z87.891) 04/13/2025 Screening for lung cancer (ICD-10 - Z12.2) 04/13/2025 Colon cancer screening (ICD-10 - Z12.11) 04/13/2025 Encounter for immunization (ICD-10 - Z23) Plan Of Treatment Medication Medication Name Sig Start Date Stop Date Notes Omeprazole 20 MG 1 cap(s) orally once a day; Duration: 90 days QUEtiapine Fumarate 50 MG 1 tab(s) orall y once a day (in the evening); Duration: 90 days Atorvastatin Calcium 10 MG 1 tab(s) oral ly once a day; Duration: 90 days Lisinopril-hydroCHLOROthiazi de 20-12.5 MG 1 tab(s) orally once a day; Duration: 90 days Pending Test Test Name Order Date colonoscopy 04/13/2025 CT Scan : Chest, low dose 04/13/2025 Next Appt Details Follow Up: 3 Months fasting, Reason: Provider Name:Keo poon, 07/15/2025 09:30:00 AM, [address] [facility] [address] [facility], [address], [place], [phone], Progress Notes * Mt NESBITT:[birth year] (54 yo M)Acc No.[id number]:04/13/2025 Progress Notes Patient: Arvin COOPER Provider: Salma Palma M.D. :1970 A ge:54 Y S ex:Male Date:04/13/2025 Address:[address], [id number] Subjective: * Chief Complaints: * 1 . Refills. * HPI: C ardiology: 54 year old male presents with c/o Blood Pressure Elevated P t here for checkup on hypertension. Pt states he is doing well and does not have any concerns at this time. c/o Hyperlipidemia P t is not fasting today. * Medical History: A llergic Rhinitis, Hypertension, Hyperlipidemia, Transaminasemia, Cervical Disc Disease, with C5/6 Spinal Stenosis, Alcoholism, Rehab 05/2013, 30 pack year smoking history as of 2024. * Surgical History: T ooth Extractions 1997, LT 5th Digit Tendon Decompression 2010, Cardiac Stress Test - Negative - [facility] 03/12/2020. * Hospitalization/Major Diagno stic Procedure: N ausea and Hypotension- [facility] ER 10/31/2009, Vomiting & Diarrhea- [facility] 06/15-03/2013, Siezure- [facility] 06/22-, Chest and Neck Pain- [facility] 03/10/2020, [place] [facility] [place]. * Family History: F ather: alive. M other: alive, cervical cancer. 2 son(s) - healthy. . * Social History: C URRENT TOBACCO USE: Yes S moking Status: Patient does smoke, packs per day: 1. C affeine: yes, frequency:daily. Exercise: no. Marital Status: Single. Occupation: [employer]. Past smoking status: yes, PPD: 1 [...] Allergies: P ercocet. Objective: * Vitals: W t: 218.6, Temp: 97.9, BP: 156/92, HR: 104, Nurse: erika, Ht: 71, BMI:30.49. * Examination: C ardiology: General Appearance: p leasant, NAD. H eart sounds: R RR, normal S1, S2. L ungs: c lear, no rales or wheezes. E xtremities: n o leg edema. Assessment: * Assessment: 1. E ssential hypertension - I10 (Primary) 2 . M ixed hyperlipidemia - E78.2 3 . G astroesophageal reflux disease, unspecified whether esophagitis present - K21.9 4 . P rimary insomnia - F51.01 5 . P ersonal history of nicotine dependence - Z87.891 6 . S creening for lung cancer - Z12.2 ? 7 . C olon cancer screening - Z12.11 8 . E ncounter for immunization - Z23 Plan: * Treatment: 2. M ixed hyperlipidemia Refill Atorvastatin Calcium Tablet, 10 MG, 1 tab(s), orally, once a day, 90 days, 90, Refills 1.? 3. G astroesophageal reflux disease, unspecified whether esophagitis present Refill Omeprazole Capsule Delayed Release, 20 MG, 1 cap(s), orally, once a day, 90 days, 90, Refills 1. 4. P rimary insomnia Refill QUEtiapine Fumarate Tablet, 50 MG, 1 tab(s), orally, once a day (in the evening), 90 days, 90, Refills 1. 5. P ersonal history of nicotine dependence I maging: CT Scan : Chest, low dose 6.?Screening for lung cancer?Imaging: CT Scan : Chest, low dose* Franchesca Wright 04/13/2025 11:5 3:06 AM EST > faxed to [facility] Scheduling 7.?Colon cancer screening?Imaging: colonoscopy* Franchesca Wright 04/13/2025 11:5 7:59 AM EST > faxed to Dr. Shelley office * Immunizations: Fluzone Quad (6months&older) : 0.5 mL (Route: Intramuscular) given by Mariza Allison on Right Deltoid (Encounter for immunization) * Follow Up: 3 Months fasting * Images: Billing Information: * Visit Code: 79240 Office Visit, Est Pt., Level 4. * Procedure Codes: * Electronic signature of Sarah Palma MD on 04/21/2025 at 06:53 AM EST Sign off status: Pending * Provider: Salma Palma M.D. Date: 06/14/2024 Generated for Andreina sofia/Syeda/Bradford on: 06/22/2024 06:53 AM EST History and Physical Notes * HPI (History of Present Illness) Category Sub-Category Detail Notes Category Not es Cardiology Blood Pressure Elevated Pt here for checkup on hypertension. Pt states he is doing well and does not have any concerns at this time Hyperlipidemia Pt is not fasting to day Examination Category Sub-Category Detail Notes Category Not es Cardiology Lungs: clear, no rales or wheezes Heart sounds: RRR, normal S1, S2 Extremities: no leg edema General Appearance: pleasant, NAD
--- OUTSIDE RECORDS SUMMARY | 2025-04-21 06:54 | XMS_ITS | Patient Health Record ---
Author Organization [facility] Address [address] [place] [phone] Care Team Providers Care Home Visit Field Care Manager Name Role Phone Keo Palma Primary Care [...] Normal Performing Lab: Notes/Report: Test performed by [facility] [address] [place], [place] [address] [place] , [address], [place] [address] Dinesh Sequeira MD, Chef Head CLIA: [id number] Vitamin B12 9327 969-2209 pg/mL P-Comprehensive Metabolic Pa erin (CMP) Reviewed date:07/02/2024 03:01:46 PM Interpretation:gluc 101, alt 76, ast 77 Performing Lab: Notes/Report: Test performed by [facility] [address] [place] [address] , [address], [place] [address] Dinesh Sequeira MD, Chef Head CLIA: [id number] Sodium 139 135-145 mmol/L Potassium 4.4 3.5-5.3 [...] 165 Performing Lab: Notes/Report: Test performed by [facility] [address] [place] [address] , [address], [place] [address] Dinesh Sequeira MD, Chef Head CLIA: [id number] Cholesterol 260 <200 mg/dL Triglycerides 169 <150 [...] Normal Performing Lab: Notes/Report: Test performed by [facility] [address] , [place] [address] Dinesh Sequeira MD, Chef Head CLIA: [id number] TSH reflex to FT4 0.61 0.43-5.25 mU/L P-Microalbumin/Creatinine, R andom Urine Sample Reviewed date:07/02/2024 03:01:47 PM Interpretation:a/c 43 Performing Lab: Notes/Report: Test performed by [facility] [address] [place] [address] Dinesh Sequeira MD, Chef Head CLIA: [id number] Albumin/Creatinine Ratio, Urine 43 0-30 ug/m g Microalbumin, Urine, Random 9.3 Creatinine, Urine 216.7 Medications Medication SIG (Take, Route, Frequency, Duration) [...] Comme nts Fluzone Quad (6months&older) IM Intramuscular 03/25/2020 Administered Fluzone Quad (6months&older) IM Intramuscular 02/28/2022 Administered Fluzone Quad (6months&older) IM Intramuscular 04/13/2025 Administered COVID 19 Moderna IM Intramuscular 08/12/2020 Administered COVID 19 Moderna Unknown 09/15/2020 Administered COVID 19 Moderna Unknown 03/24/2021 Administered Problems Problem Type SNOMED Code ICD Code Onset Dates Problem Status W/U Status Risk Notes Problem Essential hypertension (74857901) Essential (primary) hypertension (I10) Active confirmed Problem Essential hypertension (11442289) Essential hypertension (I10) Active confirmed Problem Arthropathy of lumbar facet joint (280247871) Lumbar facet arthropathy (M47.816) Active confirmed Problem Mixed hyperlipidemia (893167299) Mixed hyperlipidemia (E78.2) Active confirmed Problem Primary insomnia (1463323) Primary insomnia (F51.01) Active confirmed Problem Chronic pain (68582179) Other chronic pain (G89.29) Active confirmed Problem Sciatica (60228130) Lumbago with sciatica, left side (M54.42) Active confirmed Problem Degeneration of lumbar intervertebral disc (18786074) Lumbar degenerative disc disease (M51.36) Active confirmed Problem Hyperlipidemia (55452262) Hyperlipidemia, unspecified (E78.5) Active confirmed Problem Gastroesophageal reflux disease (029420512) Gastroesophageal reflux disease, unspecified whether esophagitis present (K21.9) Active confirmed Vital Signs Heart Rate 104 /min 04/13/2025 Blood pressure diastolic 92 mm Hg 04/13/2025 Height 71 in 04/13/2025 Blood pressure systolic 156 mm Hg 04/13/2025 Weight 218.6 lbs 04/13/2025 BMI 30.49 kg/m2 04/13/2025 Encounters Encounter Location Date Provider Diagnosis [facility] [address] [place], [place] [phone] 07/01/2024 Keo Palma Essential hypertensi on I10 ; Mixed hyperlipidemia E78.2 ; Gastroesophageal reflux disease, unspecified whether esophagitis present K21.9 ; Numbness in both legs R20.0 and Primary insomnia F51.01 [facility] [address] [facility] [address] [place], [place] [id number] 04/13/2025 Keo [place] Essential hypertensi on I10 ; Mixed hyperlipidemia E78.2 ; Gastroesophageal reflux disease, unspecified whether esophagitis present K21.9 ; Primary insomnia F51.01 ; Personal history of nicotine dependence Z87.891 ; Screening for lung cancer Z12.2 ; Colon cancer screening Z12.11 and Encounter for immunization Z23 [facility] [address] [facility] [address] [place], [place] [phone] 04/23/2024 Keo [place] [facility] [address] [facility] [address] [place], [place] [phone] 07/02/2024 Keo [place] Assessments Encounter Date Diagnosis (ICD Code) Assessment Notes Treatment Notes Treatment Clinical Notes Section Notes 07/01/2024 Essential hypertension (ICD-10 - I10) 07/01/2024 Mixed hyperlipidemia (ICD-10 - E78.2) 04/13/2025 Essential hypertension (ICD-10 - I10) 04/13/2025 Mixed hyperlipidemia (ICD-10 - E78.2) 04/13/2025 Gastroesophageal reflux disease, unspecified whether esophagitis present (ICD-10 - K21.9) 07/01/2024 Gastroesophageal reflux disease, unspecified whether esophagitis present (ICD-10 - K21.9) 07/01/2024 Numbness in both legs (ICD-10 - R20.0) 04/13/2025 Primary insomnia (ICD-10 - F51.01) 07/01/2024 Primary insomnia (ICD-10 - F51.01) 04/13/2025 Personal history of nicotine dependence (ICD-10 - Z87.891) 04/13/2025 Screening for lung cancer (ICD-10 - Z12.2) 04/13/2025 Colon cancer screening (ICD-10 - Z12.11) 04/13/2025 Encounter for immunization (ICD-10 - Z23) Plan Of Treatment Pending Test Test Name Order Date colonoscopy 04/13/2025 CT Scan : Chest, low dose 04/13/2025 Next Appt Details Provider Name:Keo Glover ry, 07/15/2025 09:30:00 AM, [address], [address], [place], [phone], Insurance Providers Payer Name Payer Address Payer Phone Subscriber Number Group Number Insured Name Patient Relationship to Insured Coverage Start Date Coverage End Date [employer] [address] [place] [address] [phone] [id number] Arvin Gagnon Self - patient is the insured Medical (General) History Medical History History ICD Code Allergic Rhinitis Hypertension Hyperlipidemia Transaminasemia Cervical Disc Disease, with C5/6 Spinal Stenosis Alcoholism, Rehab 05/2013 30 pack year smoking history as of 2024 Surgical History Surgery Date(Month/Year) Tooth Extractions 1998 LT 5th Digit Tendon Decompression 2010 Cardiac Stress Test - Negative - [facility] 03/12/2020 Hospitalization History Reason Date(Month/Year) Elbow- [facility] 09/2020 Chest and Neck Pain- [facility] 03/10/2020 Siezure- [facility] 06/22- Vomiting & Diarrhea- [facility] 06/15-03/2013 Nausea and Hypotension- [facility] ER 0
--- NOTE | 2025-04-21 06:57 | CT_ITS ---
FINAL REPORT TECHNIQUE: Thin section axial images were obtained through the lungs using a low-dose technique per lung cancer screening protocol. Reconstruction images were obtained using the axial data. Exam was performed using dose reduction technique. CLINICAL HISTORY: SCREENING current smoker 1ppd x36 years COMPARISON: None FINDINGS: CTDLvol: 2.90 DLP: 105.51 Current smoker 36 pack year history Lungs: No acute pulmonary abnormality. There is a 4 mm nodule adjacent to the left major fissure #25 of series 4. There is a 6 mm nodule in the right middle lobe, best seen on image #50 of series 4. There is a 4 mm nodule in the right major fissure, best seen on image #44 of series 4. No consolidation is present. Lymph nodes: No thoracic lymphadenopathy. Mediastinum: Heart size is normal. Jesse artery calcifications are present. Pleura/pericardium: No pleural or pericardial effusion. Other: No acute abnormality in the upper abdomen. IMPRESSION: Several small nodules are identified, the largest a 6 mm nodule in the right middle lobe. Lung RADS: 2S, the S designation for prominent coronary artery calcifications. Recommendation: 12-month follow-up LDCT. Reviewed, Interpreted and Dictated by Michaela Franz MD Transcribed by Jeanna Sigala Authenticated and . [facility]
== END 2025-04-21 23:59 ==
LOC: RAD 06:52
PROVIDERS: PCP Family Medicine; Visit Provider Family Medicine
DX: Z12.2 Encounter for screening for malignant neoplasm of respiratory organs (principal); F17.210 Nicotine dependence, cigarettes, uncomplicated; R91.8 Other nonspecific abnormal finding of lung field
CPT/HCPCS: 71271